=== PATIENT | female | born 1945 | race Caucasian/White ===

== ENCOUNTER 2024-02-14 09:07 | Outpatient (AMB) | payer MEDICARE, SELFPAY ==
[2024-02-14 09:10] VITALS: BP 138/64; PULSE 81; O2SAT 96; BMI 28.8
--- NOTE | 2024-02-14 09:10 | AM.OFFWIN_ITS ---
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 She reports no other respiratory symptoms, and denies fever chills, vision changes, headache or dizziness, nausea vomiting or diarrhea, or other significant associated symptoms. No known sick contacts, did not test for COVID recently [facility] Social History Patient Tobacco Use Status: Never used Tobacco Physical Exam Vital Signs: Last Vital Signs Pulse 81 02/14/24 09:10 BP 138/64 02/14/24 09:10 Pulse Ox 96 02/14/24 09:10 Oxygen Delivery Method Room Air 02/14/24 09:10 BMI result Body Mass Index 28.8 Const General: cooperative, healthy appearing, comfortable, no acute distress, alert, awake, Physically active and well groomed; No anxious, diaphoretic, ill appearing, intoxicated appearing, poor hygiene or tired appearing Nutritional Appearance: average body habitus Limitations: no limitations Eyes General: appearance normal, both eyes and all related structures (Right side) Alignment and Position: alignment normal and position normal Periorbital: periorbital findings normal Eyelids: Yes eyelid abnormality Conjunctivae: conjunctival abnormal (Purulent discharge to upper and lower eyelash hairlines) Pupils: Equal, round and reactive pupils present and Pupils normal by confrontation Neuro Cranial nerves: Yes Equal, round and reactive pupils present Assessment & Plan Assessment & Plan (1) Bacterial conjunctivitis: Code(s): H10.9 - Unspecified conjunctivitis Plan Patient is an 78-year-old female with apparent left bacterial conjunctivitis. I will write her for an anti biotic drop, and she can use warm compresses a few times a day as needed. She knows to follow up if symptoms persist or worsen Medications: New polymyxin B sulf-trimethoprim 10,000 unit- 1 mg/mL while awake; do not exceed 6 doses in 24 hours 1 drp ophthalmic (eye) QID 10 mL 0RF 5 days Coding Level of Care Code New Pt Level 4 (53944) Diagnoses Bacterial conjunctivitis H10.9
== END 2024-02-14 09:44 | disposition home or self-care (01) ==
PROVIDERS: Visit Provider Physician Assistant Medical
DX: H10.9 Unspecified conjunctivitis (principal)
CPT/HCPCS: 99051; 99204

== ENCOUNTER 2024-02-18 09:03 | Outpatient (AMB) | payer MEDICARE, SELFPAY ==
[2024-02-18 09:04] VITALS: BP 132/84; PULSE 74; TEMP 36.6; O2SAT 98; BMI 28.8
--- NOTE | 2024-02-18 09:04 | AM.OFFWIN_ITS ---
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 SHe was seen here at clinic Sat for similar issue and prescribed Abx eye drops. Pt today reports no improvement. [facility] Social History Patient Tobacco Use Status: Never used Tobacco Review of Systems Const All systems reviewed & are unremarkable except as noted in HPI and below Physical Exam Vital Signs: Last Vital Signs Temp 97.9 F 02/18/24 09:04 Pulse 74 02/18/24 09:04 BP 132/84 02/18/24 09:04 Pulse Ox 98 02/18/24 09:04 Oxygen Delivery Method Room Air 02/18/24 09:04 BMI result Body Mass Index 28.8 Const General: comfortable and no acute distress Orientation/consciousness: patient oriented x3 Eyes Conjunctivae: conjunctival abnormal (redness) diffuse Pupils: Equal, round and reactive pupils present EOM: EOMs intact bilaterally Neuro General: patient oriented x3, gait normal and moves all extremities Cranial nerves: Yes Equal, round and reactive pupils present Psych Speech and movement: Normal speech and movement present Assessment & Plan Assessment & Plan (1) Acute bacterial conjunctivitis of both eyes: Code(s): H10.33 - Unspecified acute conjunctivitis, bilateral Plan: - Stop the Abx Eye Drops - Start taking New Abx ointment at bedtime - Maintain a good eye hygiene Medications: New erythromycin 1 appl ophthalmic (eye) BEDTIME 3.5 grams 0RF conjunctivitis 7 days H10.33 - Unspecified acute conjunctivitis, bilateral ketotifen fumarate 0.025%(0.035%) (Zaditor) administer at least 8 hours apart 1 drp ophthalmic (eye) DAILY 5 mL 0RF Dry eyes H10.33 - Unspecified acute conjunctivitis, bilateral Coding Level of Care Code Est Pt Level 3 (84118) Diagnoses Acute bacterial conjunctivitis of both eyes H10.33 Time Spent (min) 15
== END 2024-02-18 09:23 | disposition home or self-care (01) ==
PROVIDERS: Visit Provider Nurse Practitioner Family
DX: H10.33 Unspecified acute conjunctivitis, bilateral (principal)
CPT/HCPCS: 99213